=== PATIENT | female | born 1985 | race African-American/Black ===

== ENCOUNTER 2016-06-01 18:55 | Emergency (ER) | payer MEDICARE, MEDICAID ==
[2016-06-01 20:14] VITALS: BP 175/97
--- NOTE | 2016-06-01 21:03 | UC ---
Respiratory Complaint HPI - HPI Summary HPI Summary: cough for several months, feels tired - History of Current Complaint Chief Complaint: UCRespiratory Stated Complaint: COUGH, CHEST CONGESTION, AND SINUS CONGESTION Time Seen by Provider: 06/01/16 20:06 Hx Obtained From: Patient Hx Last Menstrual Period: 2015 ?: Yes Onset/Duration: Gradual Onset, Lasting Weeks, Still Present Timing: Constant Severity Initially: Moderate Severity Currently: Moderate Pain Intensity: 0 Pain Scale Used: 0-10 Numeric Character: Cough: Nonproductive Aggravating Factors: Nothing - Allergies/Home Medications Allergies/Adverse Reactions: Allergies Allergy/AdvReac Type Severity Reaction Status Date / Time No Known Allergies Allergy Verified 06/01/16 20:05 PMH/Surg Hx/FS Hx/Imm Hx Previously Healthy: No Endocrine History Of: Denies: Diabetes, Thyroid Disease Cardiovascular History Of: Reports: Cardiac Disorders - fatty Dr bolanos, Hypertension - this admission 220/120's Denies: Pacemaker/ICD, Congestive Heart Failure Respiratory History Of: Denies: COPD, Asthma GI/ History Of: Denies: Gastroesophageal Reflux, Ulcer, Renal Disease Neurological History Of: Reports: Migraine Denies: CVA, Dementia, Seizures Other History Of: Negative For: Anticoagulant Therapy - Surgical History Surgical History: Yes Surgery Procedure, Year, and Place: 2000 right ovarian cyst, 2010 drain cyst right ovary per pt, csection 2012+2013, spleenectomy - Family History Known Family History: Positive: Cardiac Disease - CAD - Social History Occupation: Unemployed Lives: With Family Alcohol Use: None Alcohol Amount: 1-2 drink weekly Substance Use Type: None Smoking Status (MU): Former Smoker Type: Cigarettes Amount Used/How Often: 1-2 cigarettes daily Length of Time of Smoking/Using Tobacco: 10 years Have You Smoked in the Last Year: Yes When Did the Patient Quit Smoking/Using Tobacco: january 2016 Household Exposure Type: Cigarettes - Immunization History Most Recent Influenza Vaccination: NONE Most Recent Tetanus Shot: 2011 Most Recent Pneumonia Vaccination: NONE Review of Systems Constitutional: Fatigue Skin: Negative Eyes: Negative ENT: Negative Respiratory: Cough Cardiovascular: Negative Gastrointestinal: Negative Genitourinary: Negative Motor: Negative Neurovascular: Negative Musculoskeletal: Negative Neurological: Negative Psychological: Negative All Other Systems Reviewed And Are Negative: Yes Physical Exam Triage Information Reviewed: Yes Appearance: No Pain Distress, Well-Nourished, Ill-Appearing - mild Vital Signs: Initial Vital Signs Temp 97.3 F 06/01/16 19:58 Pulse 69 06/01/16 19:58 Resp 18 06/01/16 19:58 BP 175/97 06/01/16 19:58 Pulse Ox 100 06/01/16 19:58 Vital Signs Reviewed: Yes Eye Exam: Normal Eyes: Positive: Conjunctiva Clear ENT Exam: Normal ENT: Positive: Normal ENT inspection, Hearing grossly normal, Pharynx normal, TMs normal. Negative: Nasal congestion, Nasal drainage, Tonsillar swelling, Tonsillar exudate, Trismus, Muffled/hoarse voice Dental Exam: Normal Neck exam: Normal Neck: Positive: Supple, Nontender, No Lymphadenopathy Respiratory Exam: Normal Respiratory: Positive: Chest non-tender, Lungs clear, Normal breath sounds, No respiratory distress, No accessory muscle use Cardiovascular Exam: Normal Cardiovascular: Positive: RRR, No Murmur, Pulses Normal, Brisk Capillary Refill Abdominal Exam: Normal Abdomen Description: Positive: Nontender, No Organomegaly, Soft Bowel Sounds: Positive: Present Musculoskeletal Exam: Normal Musculoskeletal: Positive: Strength Intact, ROM Intact Neurological Exam: Normal Neurological: Positive: Alert, Muscle Tone Normal, Fatigued Psychological Exam: Normal Skin Exam: Normal UC Diagnostic Evaluation - Laboratory O2 Sat by Pulse Oximetry: 100 Diagnostic Studies Comment: ua with 100mg/kg protien, +ketones. [id number] Respiratory Course/Dx - Course Course Of Treatment: [place] [facility] [place] - Differential Dx/Diagnosis Differential Diagnosis/HQI/PQRI: Lower Resp Infection, Other - protienuria, hypertension urgency Provider Diagnoses: , hypertensive urgency, protienuria - Physician Notification/Consults Discussed Patient Care With: Radha SAMUELS Time Discussed With Above Provider: 20:30 Instructed by Provider To: Transfer Discharge - Discharge Plan Condition: Fair Disposition: TRANS HIGHER L OF CARE FAC Referrals: Cindy Maier MD [Primary Care Provider] -
== END 2016-06-01 20:50 | disposition short-term general hospital (02) ==
LOC: UCEAST 18:55
DX: O16.9 Unspecified maternal hypertension, unspecified trimester (principal); O12.10 Gestational proteinuria, unspecified trimester; Z3A.00 Weeks of gestation of pregnancy not specified; Z90.81 Acquired absence of spleen; Z87.891 Personal history of nicotine dependence
CPT/HCPCS: 81002; 99213; G0463

== ENCOUNTER 2016-06-25 23:38 | Emergency (ER) | payer MEDICARE, MEDICAID ==
--- NOTE | 2016-06-26 00:07 | ED ---
Skin Complaint - HPI Summary HPI Summary: 30F presents with ring stuck on right ring finger for an hour. She tried pulling it off and has a small abrasion noted. She has not placed an ice on the area. She denies any numbness or tingling. She is right handed. 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, Hx Blood Transfusions - platelets d/t ITP, Hx Systemic Lupus Erythematosus, Hx Anemia Denies: Hx Anticoagulant Therapy, Hx Diabetes, Hx Thyroid Disease, Hx Unexplained Bleeding Cardiovascular History: Reports: Hx Hypertension Denies: Hx Congestive Heart Failure, Hx Pacemaker/ICD Respiratory History: Denies: Hx Asthma, Hx Chronic Obstructive Pulmonary Disease (COPD) GI History: Denies: Hx Ulcer History: Denies: Hx Dialysis, Hx Renal Disease Musculoskeletal History: Denies: Hx Scoliosis Sensory History: Denies: Hx Contacts or Glasses, Hx Hearing Aid Opthamlomology History: Denies: Hx Contacts or Glasses Neurological History: Reports: Hx Migraine Denies: Hx Dementia, Hx Headaches, Hx Seizures, Other Neuro Impairments/ Disorders Psychiatric History: Denies: Hx Substance Abuse - Surgical History Surgery Procedure, Year, and Place: 2000 right ovarian cyst, 2010 drain cyst right ovary per pt, csection 2012+2013, spleenectomy Hx Anesthesia Reactions: No - Immunization History Date of Tetanus Vaccine: UNK Date of Influenza Vaccine: UNK Infectious Disease History: Yes Infectious Disease History: Denies: Hx Clostridium Difficile, Hx Hepatitis, Hx Human Immunodeficiency Virus (HIV), Hx of Known/Suspected MRSA, Hx Shingles, Hx Tuberculosis, Hx Known/ Suspected VRE, Hx Known/Suspected VRSA, History Other Infectious Disease, Traveled Outside the [place] in Last 30 Days - Family History Known Family History: Positive: Cardiac Disease - CAD - Social History Alcohol Use: None Alcohol Amount: 1-2 drink weekly Hx Substance Use: No Substance Use Type: Reports: None Hx Tobacco Use: No Smoking Status (MU): Former Smoker Type: Cigarettes Amount Used/How Often: 1-2 cigarettes daily Length of Time of Smoking/Using Tobacco: 10 years Have You Smoked in the Last Year: Yes Review of Systems Negative: Fever Negative: Chest Pain Negative: Shortness Of Breath Positive: Other - ring stuck on ring finger All Other Systems Reviewed And Are Negative: Yes Physical Exam Triage Information Reviewed: Yes Vital Signs On Initial Exam: Initial Vitals Temp Pulse Resp BP Pulse Ox 96.7 F 70 16 180/106 100 06/25/16 23:40 06/25/16 23:40 06/25/16 23:40 06/25/16 23:40 06/25/16 23:40 Vital Signs Reviewed: Yes Appearance: Positive: Well-Appearing Skin: Positive: Warm, Dry, Other - ring present on right index finger Head/Face: Positive: Normal Head/Face Inspection Eyes: Positive: Normal, Conjunctiva Clear Respiratory/Lung Sounds: Positive: Clear to Auscultation, Breath Sounds Present Cardiovascular: Positive: Normal, RRR Musculoskeletal: Positive: Other - good capillary refill <2 secs. edema present of right index finger, full ROM, small abrasion noted next to ring Procedures - Procedure Summary Procedure Summary: used ring cutters to remove ring from right index finger successfully Diagnostics - Vital Signs Vital Signs Temp Pulse Resp BP Pulse Ox 06/25/16 23:40 96.7 F 70 16 180/106 100 - Laboratory Lab Statement: Any lab studies that have been ordered have been reviewed, and results considered in the medical decision making process. Course/Dx - Course Course Of Treatment: 30f presents with right index finger ring stuck on. edema and small abrasion noted to area. is right handed. has full ROM and good capillary refill. agreed to allow to use ring cutter. successfully was able to remove ring, told to ice finger. patient understands and agrees with plan - Differential Diagnoses - Skin Complaint Differential Diagnoses: Foreign Body, Other - abrasion - Diagnoses Provider Diagnoses: removal of ring from finger Discharge - Discharge Plan Condition: Good Disposition: HOME Referrals: Cindy Maier MD [Primary Care Provider] - Additional Instructions: Place ice on area Take Tylenol or ibuprofen every 6 hours for pain Return to ED if develop any new or worsening symptoms
[2016-06-26 00:14] VITALS: BP 171/114
== END 2016-06-26 00:13 | disposition home or self-care (01) ==
LOC: ED 23:38
DX: S60.454A Superficial foreign body of right ring finger, initial encounter (principal); S60.414A Abrasion of right ring finger, initial encounter; X58.XXXA Exposure to other specified factors, initial encounter; Y92.9 Unspecified place or not applicable; Z87.891 Personal history of nicotine dependence
CPT/HCPCS: 99281

== ENCOUNTER → 2017-02-28 13:52 | Emergency (ER) | payer MEDICARE, MEDICAID ==
[2017-02-28 13:58] VITALS: BP 167/113
== END | disposition left against medical advice (07) ==
LOC: ED 13:52
DX: R10.9 Unspecified abdominal pain (principal); Z53.21 Procedure and treatment not carried out due to patient leaving prior to being seen by health care provider

== ENCOUNTER 2017-03-02 14:00 | Day surgery (SDC) | payer MEDICARE, MEDICAID ==
[2017-03-02] MEDS ORDERED: Buffered Lidocaine 0.9% SYRIN* 5 ML/SYR SYRINGE ONE (14:15)
[2017-03-02] MEDS ORDERED: Famotidine IV* 10 MG/ML 2 ML (20 mg) IV ONE (14:20)
[2017-03-02] MEDS ORDERED: Buffered Lidocaine 0.9% SYRIN* 5 ML/SYR SYRINGE INTRADERM ONE (14:20)
[2017-03-02 14:52] LABS: Hematocrit 27 % (35-47); Hemoglobin 8.5 g/dl (12.0-16.0); Mean Corpuscular HGB Conc 32 g/dl (31-36); Mean Corpuscular Hemoglobin 26 pg (27-31); Mean Corpuscular Volume 81 fL (80-97); Mean Platelet Volume 7 um3 (7.4-10.4); Red Blood Count 3.31 10^6/ul (4.0-5.4); Red Cell Distribution Width 16 % (10.5-15); White Blood Count 4.8 10^3/ul (3.5-10.8)
[2017-03-02] MEDS ORDERED: DOXYcycline IV* 100 MG in NS 0.9% 250 ML* 250 ML IVPB ONE (15:00)
[2017-03-02] MEDS ORDERED: fentaNYL* 50 MCG/ML 2 ML VIAL (100 MCG VIAL) ONE (15:11)
[2017-03-02] MEDS ORDERED: Midazolam* 1 MG/ML 2 ML VIAL (2 MG) ONE (15:12)
[2017-03-02] MEDS ORDERED: Lidocaine 2% PF * 5 ML VIAL ONE (15:38)
[2017-03-02] MEDS ORDERED: Propofol* 10 MG/ML 20 ML BTL IV PUSH ONE (15:54)
[2017-03-02] MEDS ORDERED: Dexamethasone IV* 4 MG/ML 1 ML (4 MG) ONE (15:54)
[2017-03-02] MEDS ORDERED: fentaNYL* 50 MCG/ML 2 ML VIAL (100 MCG VIAL) IV PRN (16:10)
[2017-03-02] MEDS ORDERED: HYDROcodone/ACETAMIN 5-325 MG* 1 TAB PO PRN (16:10)
[2017-03-02] MEDS ORDERED: Acetaminophen TAB* 325 MG PO PRN (16:10)
[2017-03-02] MEDS ORDERED: Ondansetron INJ* 2 MG/ML VIAL IV PRN (16:10)
[2017-03-02] MEDS ORDERED: Levalbuterol 0.63MG/3ML NEB* UNIT OF USE INH PRN (16:10)
[2017-03-02] MEDS ORDERED: PROCHLORPERAZINE INJ 5 MG/ML 2 ML VIAL IV PRN (16:10)
[2017-03-02 17:17] VITALS: BP 156/109
--- NOTE | 2017-03-03 13:54 | OP ---
DATE OF OPERATION: 03/02/17 [facility] DATE OF : 87 SURGEON: Jackie Pedroza MD LEATHER POLISHER: Sariah Mosquera CNM ANESTHESIOLOGIST: Dr. Tolentino. ANESTHESIA: General. PRE-OP DIAGNOSIS: Persistent bleeding after elective termination of with possible retained products of conception. POST-OP DIAGNOSIS: Persistent bleeding after elective termination of with possible retained products of conception. OPERATIVE PROCEDURE: Suction dilation and curettage with ultrasound guidance. ESTIMATED BLOOD LOSS: 30 cc. URINE OUTPUT: 100 cc. IV FLUIDS: 600 cc lactated Ringer's. MATERIALS TO LAB: Intrauterine contents. INDICATIONS: This patient was a 31-year-old 6, para 4, who underwent an elective termination at [facility] on 02/03/17. The patient was transferred to the hospital immediately after the procedure due to issues with pain and concerns for complications. The patient did not require further treatment at that point. However, over the next 3 weeks, the patient reports that she has continued to have intermittent heavy bleeding daily since this. She also has had fairly severe episodes of cramping and pain, which have not improved. She was referred from [facility] and seen in our office yesterday and added on for D&C today. Ultrasound done in our office noted approximately 3.5 cm heterogeneous tissue within the uterine cavity. She was extensively counseled and consent was signed. FINDINGS: Uterus very anterior likely due to adhesions from the anterior uterus to the anterior abdominal wall from her three sections. Some dark necrotic looking tissue or blood was evacuated. The procedure was otherwise uncomplicated. DESCRIPTION OF PROCEDURE: The risks, benefits, and alternatives were described to the patient and informed consent was obtained. The patient was taken to the operating room with IV running where general anesthesia was induced and found to be adequate. The patient was prepped and draped in the normal sterile fashion in the high lithotomy position in [facility]. A time-out was performed. An abdominal ultrasound was performed prior to evacuating the uterus. The bladder was emptied. A bivalve speculum was placed in the vagina and a single- tooth tenaculum was placed on the anterior cervix. The uterus sounded to approximately 12 cm. Hanks dilators were used to dilate the cervix to a size of 30. At that time, a size 8 suction curette was able to be advanced through the cervix and into the uterine cavity without difficulty. This was visualized on ultrasound. At that time, a moderate amount of material was removed from the uterine cavity without difficulty. On ultrasound, the evacuation appeared to be complete. The suction curette was removed and a gentle sharp curettage was performed using a medium banjo curette. No additional tissue was present at that point. The bleeding from the uterus was minimal at that time. The tenaculum was removed from the cervix. Despite applying silver nitrate and firm pressure for several minutes, one of the tenaculum sites had persistent bleeding. A 3-0 Polysorb single interrupted stitch was then placed with good hemostasis. The speculum was then removed and the patient was returned to the supine position. The patient tolerated the procedure well. Sponge, lap, and needle counts were correct x2. [id number]/[facility] #: [id number] MTDD
== END 2017-03-02 17:25 | disposition home or self-care (01) ==
LOC: OR 14:00
PROVIDERS: ATTEND Obstetrics & Gynecology
DX: O04.6 Delayed or excessive hemorrhage following (induced) termination of pregnancy (principal); I10 Essential (primary) hypertension; M32.9 Systemic lupus erythematosus, unspecified
CPT/HCPCS: 36415; 85025; 86850; 86900; 86901; 88305; J1100; J2250; J2704; J3010

== ENCOUNTER 2017-05-04 13:42 | Emergency (ER) | payer MEDICAID, MEDICARE ==
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
[2017-05-04] MEDS ORDERED: Cyclobenzaprine TAB* 10 MG PO ONE (18:36)
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
[2017-05-04] MEDS ORDERED: HYDROcodone/ACETAMIN 5-325 MG* 1 TAB PO ONE (19:45)
[2017-05-04 20:07] VITALS: BP 137/84
== END 2017-05-04 20:06 | disposition home or self-care (01) ==
LOC: ED 13:42
DX: S32.011A Stable burst fracture of first lumbar vertebra, initial encounter for closed fracture (principal); S32.029A Unspecified fracture of second lumbar vertebra, initial encounter for closed fracture; V48.5XXA Car driver injured in noncollision transport accident in traffic accident, initial encounter; Y92.410 Unspecified street and highway as the place of occurrence of the external cause; F17.210 Nicotine dependence, cigarettes, uncomplicated
CPT/HCPCS: 72131; 99284; A9270-GY